=== PATIENT | female | born 1985 | race American Indian/Alaskan Native ===

== ENCOUNTER 2018-05-14 23:06 | Emergency (ER) | payer MEDICARE ==
[2018-05-15 00:31] LABS: Bilirubin,Urine NEG (Negative); Blood,Urine NEG (Negative); Color,Urine Yellow (Yellow); Mucus,Urine FEW /HPF; Protein,Urine <15 mg/dL mg/dL (Negative)
[2018-05-15 00:43] LABS: HCG Qualitative,Urine Negative (Negative)
--- NOTE | 2018-05-15 01:39 | XRay Report ---
FINAL REPORT PROCEDURE: XR SPINE LUMBOSACRAL 2-3V TECHNIQUE: Lumbar spine radiographs, including AP, lateral, and lumbosacral spot views. CPT 11610 HISTORY: lowe back pain COMPARISON: No prior studies are available for comparison. FINDINGS: Alignment: Normal. Vertebral body heights/Disk spaces: Normal. Fracture(s): None. Facets: Normal. Bone mineralization: Normal. IMPRESSION: Normal Examination.
--- NOTE | 2018-05-15 03:44 | Emergency Department Report ---
ED Psych HPI - General Chief Complaint: Back Pain/Injury Stated Complaint: BACK PAIN Time Seen by Provider: 05/15/18 02:17 Source: patient Mode of arrival: Stretcher Limitations: Altered Mental Status - History of Present Illness MD Complaint: altered mental status Associated Psychiatric Symptoms: auditory hallucinations (patient reports voices are speaking to her) Quality: getting worse Associated Symptoms: denies other symptoms Treatments Prior to Arrival: placed on mental he - Related Data Home Medications Medication Instructions Recorded Confirmed Last Taken Benztropine [Cogentin] 2 mg PO BID 12/02/13 12/02/13 12/01/13 21:00 Chlorpromazine HCl [chlorproMAZINE] 100 mg PO 12/02/13 12/02/13 12/01/13 21:00 Docusate Sodium [Colace] 100 mg PO BID PRN 12/02/13 12/02/13 12/01/13 21:00 Risperidone Microspheres 37.5 mg IM 12/02/13 12/02/13 12/01/13 21:00 [Risperdal Consta] diphenhydrAMINE [Benadryl] 50 mg PO QHS PRN 12/02/13 12/02/13 12/01/13 21:00 risperiDONE [Risperidone] 3 mg PO QDAY 12/02/13 12/02/13 12/01/13 21:00 Allergies Allergy/AdvReac Type Severity Reaction Status Date / Time No Known Allergies Allergy Verified 05/15/18 04:57 ED Review of Systems ROS: Stated complaint: BACK PAIN Other details as noted in HPI Other: GENERAL: No weight change, fatigue, weakness, fever, chills, or night sweats SKIN: No changes in skin or hair, no itching, no rashes, no jaundice HEAD: No trauma, headache, or visual changes EYES: No blurriness, tearing, itching, acute visual loss, conjunctival discoloration, or scleral icterus EARS: No hearing loss, tinnitus, vertigo, or earache NOSE: No rhinorrhea, stuffiness, sneezing, itching, or epistaxis MOUTH: No bleeding gums, hoarseness, sore throat, or swelling CARDIAC: No new murmur, chest pain, palpitations, dyspnea on exertion, orthopnea , PND, or edema RESPIRATORY: No shortness of breath, wheeze, cough, sputum production, hemoptysis, pneumonia, asthma, bronchitis, or emphysema GI: No change in appetite, nausea, vomiting, dysphagia, change in bowel frequency, diarrhea, constipation, bleeding, hematemesis, melena, hematochezia, or abdominal pain URINARY: No frequency, urgency, polyuria, dysuria, hematuria, or incontinence MUSCULOSKELETAL: No muscle weakness, joint stiffness, decrease in range of motion, redness, swelling. Patient denies back pain during exam NEUROLOGIC: No loss of sensation, numbness, tingling, tremors, weakness, paralysis, seizures HEMATOLOGIC: No anemia, easy bruising, bleeding, petechiae, or purpura ENDOCRINE: No hot or cold intolerance, sweating, polyuria, polydipsia or, polyphagia no thyroid problems PSYCHIATRIC: Hallucinations ED Past Medical Hx - Past Medical History Hx Psychiatric Treatment: Yes (Schizoaffective, Bipolar,) Additional medical history: Chronic Back Pain - Surgical History Additional Surgical History: pt does not know if she has had surgery or not - Social History Smoking Status: Current Every Day Smoker Substance Use Type: None - Medications Home Medications: Home Medications Medication Instructions Recorded Confirmed Last Taken Type Benztropine [Cogentin] 2 mg PO BID 12/02/13 12/02/13 12/01/13 21:00 History Chlorpromazine HCl [chlorproMAZINE] 100 mg PO 12/02/13 12/02/13 12/01/13 21:00 History Docusate Sodium [Colace] 100 mg PO BID PRN 12/02/13 12/02/13 12/01/13 21:00 History Risperidone Microspheres 37.5 mg IM 12/02/13 12/02/13 12/01/13 21:00 History [Risperdal Consta] diphenhydrAMINE [Benadryl] 50 mg PO QHS PRN 12/02/13 12/02/13 12/01/13 21:00 History risperiDONE [Risperidone] 3 mg PO QDAY 12/02/13 12/02/13 12/01/13 21:00 History ED Physical Exam - General Limitations: No Limitations - Psychiatric Psychiatric exam: Present: flat affect - Other Other exam information: GENERAL: Patient in no acute distress, disheveled HEAD: Normocephalic, atraumatic EYES: PERRLA, EOM intact, no scleral icterus, visual suarez and acuity wnl NOSE: No tenderness, discharge, sinus tenderness MOUTH: No erythema, bleeding, exudate HEART: Regular rate and rhythm, no murmur, S1-S2 are auscultated, pulses are symmetric LUNGS: bilateral breath sounds. No wheezing, rales, rhonchi ABDOMEN: Normal bowel sounds, no tenderness, no rebound, no guarding, no masses , no CVA tenderness MUSCULOSKELETAL: Normal joint range of motion, no redness, no swelling, no tenderness NEUROLOGIC: GCS 15, Alert, Cranial nerves intact, normal sensation, normal strength, normal gait, no cerebellar deficit PSYCHIATRIC: Reports auditory hallucinations, catatonic. No homicidal or suicidal ideation SKIN: Skin is warm and dry, no wounds, generalized areas of erythema nontender without discharge ED Course Vital Signs 05/14/18 05/15/18 23:42 02:15 Temperature 99.3 F 98.3 F Pulse Rate 92 H 86 Respiratory 18 16 Rate Blood Pressure 133/80 Blood Pressure 108/51 [Right] O2 Sat by Pulse 98 100 Oximetry ED Medical Decision Making - Lab Data Result diagrams: 05/15/18 03:51 05/15/18 03:51 Laboratory Results - last 24 hr 05/14/18 05/15/18 05/15/18 Unknown 03:51 03:51 WBC RBC Hgb Hct MCV MCH MCHC RDW Plt Count [place] % (Auto) Sodium 134 L Potassium 4.2 Chloride 96.4 L Carbon Dioxide 29 Anion Gap 13 BUN 5 L Creatinine 0.5 L Estimated GFR > 60 BUN/Creatinine Ratio 10 Glucose 107 H Calcium 9.1 Urine Color Yellow Urine Turbidity Clear Urine pH 5.0 Ur Specific [place] 1.023 Urine Protein <15 mg/dl Urine Glucose (UA) Neg Urine Ketones Tr Urine Blood Neg Urine Nitrite Neg Urine Bilirubin Neg Urine Urobilinogen 2.0 Ur Leukocyte Esterase Tr Urine WBC (Auto) 4.0 Urine RBC (Auto) 4.0 U Epithel Cells (Auto) 4.0 Urine Mucus Few Urine HCG, Qual Negative Salicylates Acetaminophen < 5.0 L Plasma/Serum Alcohol 05/15/18 05/15/18 05/15/18 03:51 03:51 03:51 WBC 6.4 RBC 4.19 Hgb 12.6 Hct 37.0 MCV 88 MCH 30 MCHC 34 RDW 13.2 Plt Count 224 [place] % (Auto) Stripper Machine Operator Sodium Potassium Chloride Carbon Dioxide Anion Gap BUN Creatinine Estimated GFR BUN/Creatinine Ratio Glucose Calcium Urine Color Urine Turbidity Urine pH Ur Specific [place] Urine Protein Urine Glucose (UA) Urine Ketones Urine Blood Urine Nitrite Urine Bilirubin Urine Urobilinogen Ur Leukocyte Esterase Urine WBC (Auto) Urine RBC (Auto) U Epithel Cells (Auto) Urine Mucus Urine HCG, Qual Salicylates < 0.3 L Acetaminophen Plasma/Serum Alcohol < 0.01 - Radiology Data Radiology results: report reviewed - Medical Decision Making Patient medically clear for transfer Critical care attestation.: If time is entered above; I have spent that time in minutes in the direct care of this critically ill patient, excluding procedure time. ED Disposition Clinical Impression: Dermatitis Psychosis Qualifiers: Psychosis type: unspecified psychosis type Qualified Code(s): F29 - Unspecified psychosis not due to a substance or known physiological condition Disposition: DC/TX-70 ANOTHER TYPE HLTHCARE Is pt being admited?: No Condition: Stable Referrals: PRIMARY CARE, [Primary Care Provider] - 3-5 Days Time of Disposition: 04:54
[2018-05-15 04:06] LABS: Hemoglobin 12.6 gm/dl (10.1-14.3); Mean Corpuscular HGB Conc 34 % (30-34); Mean Corpuscular Hemoglobin 30 pg (28-32); Mean Corpuscular Volume 88 fl (79-97); Platelet Count 224 K/mm3 (140-440); Red Blood Count 4.19 M/mm3 (3.65-5.03); Red Cell Distribution Width 13.2 % (13.2-15.2)
[2018-05-15 04:27] LABS: BUN/Creatinine Ratio 10; Blood Urea Nitrogen 5 mg/dL (7-17); Calcium 9.1 mg/dL (8.4-10.2); Hemolysis Index 3
[2018-05-15] MEDS ORDERED: BENADRYL PO ONE ×2 (04:48→04:52)
[2018-05-15 05:46] LABS: Anisocytosis 1+; Band Neutrophils # (Manual) 0.1 K/mm3; Basophils % (Manual) 0 % (0.0-1.8); Hypochromasia 1+; Total Cells Counted 100
[2018-05-15 12:03] LABS: Amphetamine Screen,Urine PRESUMPTIVE NEGATIVE; Benzodiazepines Screen,Urine PRESUMPTIVE NEGATIVE; Cannabinoid Screen,Urine PRESUMPTIVE NEGATIVE; Cocaine Screen,Urine PRESUMPTIVE NEGATIVE; Methadone Screen,Urine PRESUMPTIVE NEGATIVE; Opiate Screen,Urine PRESUMPTIVE NEGATIVE
--- NOTE | 2018-05-15 13:35 | Consultation ---
History of Present Illness - Reason for Consult Consult date: 05/15/18 Reason for consult: Initial Psychiatric Evaluation - Chief Complaint Chief complaint: Patient will only stare at provider. Patient is selectively mute. - History of Present Psychiatric Illness Patient is a 32-year-old -[place] female who presents to the emergency room with psychosis. Currently patient is internally preoccupied. She refuses to speak with the provider after several attempts. She has a blank stare on her face. She presents with impoverished thought content. Later, she states, " Can you'll buy me some cigarettes when I leave because I am poor." When asked, will you talk to me? Patient nods her head no. Medications and Allergies Allergies Allergy/AdvReac Type Severity Reaction Status Date / Time No Known Allergies Allergy Verified 05/15/18 04:57 Home Medications Medication Instructions Recorded Confirmed Last Taken Type Benztropine [Cogentin] 2 mg PO BID 12/02/13 12/02/13 12/01/13 21:00 History Chlorpromazine HCl [chlorproMAZINE] 100 mg PO 12/02/13 12/02/13 12/01/13 21:00 History Docusate Sodium [Colace] 100 mg PO BID PRN 12/02/13 12/02/13 12/01/13 21:00 History Risperidone Microspheres 37.5 mg IM 12/02/13 12/02/13 12/01/13 21:00 History [Risperdal Consta] diphenhydrAMINE [Benadryl] 50 mg PO QHS PRN 12/02/13 12/02/13 12/01/13 21:00 History risperiDONE [Risperidone] 3 mg PO QDAY 12/02/13 12/02/13 12/01/13 21:00 History Mental Status Exam - Vital signs Last Vital Signs Temp 98.3 F 05/15/18 02:15 Pulse 86 05/15/18 02:15 Resp 18 05/15/18 08:47 BP 108/51 05/15/18 02:15 Pulse Ox 100 05/15/18 02:15 - Exam Narrative exam: Provider unable to assess patient's mental status due to her noncompliance. Results Result Diagrams: 05/15/18 03:51 05/15/18 03:51 Abnormal lab results 05/15/18 05/15/18 05/15/18 Range/Units 03:51 03:51 03:51 Monocytes % (Manual) 12.0 H (0.0-7.3) % Lymphocytes # (Manual) 1.0 L (1.2-5.4) K/mm3 Sodium 134 L (137-145) mmol/L Chloride 96.4 L (98-107) mmol/L BUN 5 L (7-17) mg/dL Creatinine 0.5 L (0.7-1.2) mg/dL Glucose 107 H (65-100) mg/dL Salicylates (2.8-20.0) mg/dL Acetaminophen < 5.0 L (10.0-30.0) ug/mL 05/15/18 Range/Units 03:51 Monocytes % (Manual) (0.0-7.3) % Lymphocytes # (Manual) (1.2-5.4) K/mm3 Sodium (137-145) mmol/L Chloride (98-107) mmol/L BUN (7-17) mg/dL Creatinine (0.7-1.2) mg/dL Glucose (65-100) mg/dL Salicylates < 0.3 L (2.8-20.0) mg/dL Acetaminophen (10.0-30.0) ug/mL All other labs normal. Assessment and Plan Assessment and plan: Impression: Psychosis unspecified. Today the patient presents uncooperative and selectively mute during the assessment. Patient appears internally preoccupied with impoverished thought content. Provider unable to fully assess patient. DDx: r/o Schizophrenia r/o Schizoaffective Disorder Recommendation/Plan: 1. Continue 1013 and reassess in 24 hours. 2. Assist with placement to inpatient psychiatric services. 3. Gain collateral to determine proper disposition. 4. Start Zyprexa Zydis 5mg po psychosis/mood. Patient educated on metabolic side effects. Patient verbalizes full understanding. 5. Will monitor mood, psychosis, sleep, appetite, compliance, and side effects.
[2018-05-15 20:07] VITALS: BP 94/52
== END 2018-05-15 20:05 | disposition other institution (70) ==
LOC: ED 23:06
DX: L30.9 Dermatitis, unspecified (principal); F31.9 Bipolar disorder, unspecified; F20.9 Schizophrenia, unspecified; F17.200 Nicotine dependence, unspecified, uncomplicated
CPT/HCPCS: 36415; 72100; 80048; 80307; 81001; 81025; 85007; 85025; 99285; G0480; 80320

== ENCOUNTER 2019-12-27 14:31 | Emergency (ER) | payer MEDICARE ==
--- NOTE | 2019-12-27 15:46 | Emergency Department Report ---
HPI - General Chief Complaint: Psych Time Seen by Provider: 12/27/19 15:00 - HPI HPI: 34-year-old -[place] female presents to the emergency department via EMS from her transition home with complaint of depression and suicidal ideations. The patient says "I am feeling sad because I do not have my own place like I thought I would by now." She denies any particular plan as to how she would harm herself. She says that she has a history of bipolar disorder and schizophrenia. She admits to some nonspecific hallucinations but denies any homicidal ideations. Patient says that she gets a Haldol and Cogentin shot. ED Past Medical Hx - Past Medical History Previous Medical History?: Yes Hx Psychiatric Treatment: Yes (Schizoaffective, Bipolar,) Additional medical history: Chronic Back Pain - Surgical History Past Surgical History?: Yes Additional Surgical History: pt does not know if she has had surgery or not - Social History Smoking Status: Current Every Day Smoker Substance Use Type: None, Marijuana - Medications Home Medications: Home Medications Medication Instructions Recorded Confirmed Last Taken Type Benztropine [Cogentin] 2 mg PO BID 12/02/13 12/02/13 12/01/13 21:00 History Chlorpromazine HCl [chlorproMAZINE] 100 mg PO 12/02/13 12/02/13 12/01/13 21:00 History Docusate Sodium [Colace] 100 mg PO BID PRN 12/02/13 12/02/13 12/01/13 21:00 History Risperidone Microspheres 37.5 mg IM 12/02/13 12/02/13 12/01/13 21:00 History [Risperdal Consta] diphenhydrAMINE [Benadryl] 50 mg PO QHS PRN 12/02/13 12/02/13 12/01/13 21:00 History risperiDONE [Risperidone] 3 mg PO QDAY 12/02/13 12/02/13 12/01/13 21:00 History ED Review of Systems ROS: Stated complaint: MH Other details as noted in HPI Comment: All other systems reviewed and negative Constitutional: denies: chills, fever Respiratory: denies: cough, shortness of breath Cardiovascular: denies: chest pain, palpitations Gastrointestinal: denies: abdominal pain, vomiting Musculoskeletal: denies: back pain, arthralgia Neurological: denies: headache, weakness Physical Exam - Physical Exam Physical Exam: GENERAL: The patient is well-developed well-nourished. HENT: Normocephalic. Atraumatic. Patient has moist mucous membranes. EYES: Extraocular motions are intact. NECK: Supple. Trachea is midline. CHEST/LUNGS: Clear to auscultation. There is no respiratory distress noted. HEART/CARDIOVASCULAR: Regular. There is no tachycardia. ABDOMEN: Abdomen is soft, nontender. Patient has normal bowel sounds. SKIN: Skin is warm and dry. NEURO: The patient is awake, alert, and cooperative. The patient has no focal neurologic deficits. Normal speech. MUSCULOSKELETAL: There is no tenderness or deformity. There is no evidence of acute injury. ED Medical Decision Making - Lab Data Result diagrams: 12/27/19 16:18 12/27/19 16:18 - Medical Decision Making This patient presents to the emergency department with suicidal ideations without a plan. She does admit to some hallucinations that are nonspecific. However she expresses command hallucinations when she was seen by the mental health compotype operator. The patient was made a 1013 secondary to her suicidal ideations. Her labs thus far have been unremarkable including CBC, metabolic panel and blood alcohol level. The patient has been tentatively accepted to [facility] pending a urinalysis. However at this time I consider this patient to be medically cleared for psychiatric placement. - Differential Diagnosis Bipolar disorder, schizophrenia, schizoaffective, substance abuse Critical Care Time: No Critical care attestation.: If time is entered above; I have spent that time in minutes in the direct care of this critically ill patient, excluding procedure time. ED Disposition Clinical Impression: Suicidal ideations Depression Qualifiers: Depression Type: unspecified Qualified Code(s): F32.9 - Major depressive disorder, single episode, unspecified Disposition: DC/TX-65 PSY HOSP/PSY UNIT Is pt being admited?: No Condition: Stable Time of Disposition: 21:57
[2019-12-27 16:47] LABS: Basophils % (Auto) 0.2 % (0.0-1.8); Hematocrit 39.3 % (30.3-42.9); Hemoglobin 13.4 gm/dl (10.1-14.3); Lymphocytes # (Auto) 1.4 K/mm3 (1.2-5.4); Mean Corpuscular HGB Conc 34 % (30-34); Mean Corpuscular Volume 88 fl (79-97); Monocytes # (Auto) 0.6 K/mm3 (0.0-0.8); Monocytes % (Auto) 12.6 % (0.0-7.3); Platelet Count 244 K/mm3 (140-440); Red Cell Distribution Width 12.9 % (13.2-15.2)
[2019-12-27 16:50] LABS: BUN/Creatinine Ratio 14; Blood Urea Nitrogen 10 mg/dL (7-17); Hemolysis Index 6
[2019-12-28 01:30] LABS: Bilirubin,Urine NEG (Negative); Blood,Urine SM (Negative); Color,Urine Yellow (Yellow); Protein,Urine <15 mg/dL mg/dL (Negative); Urobilinogen,Urine < 2.0 mg/dL (<2.0)
[2019-12-28 01:34] LABS: Amphetamine Screen,Urine PRESUMPTIVE NEGATIVE; Benzodiazepines Screen,Urine PRESUMPTIVE NEGATIVE; Cannabinoid Screen,Urine PRESUMPTIVE NEGATIVE; Cocaine Screen,Urine PRESUMPTIVE NEGATIVE; Methadone Screen,Urine PRESUMPTIVE NEGATIVE; Opiate Screen,Urine PRESUMPTIVE NEGATIVE
--- NOTE | 2019-12-28 14:41 | Consultation ---
History of Present Illness - Reason for Consult Consult date: 12/28/19 Reason for consult: suicidal ideation - Chief Complaint Chief complaint: suicidal ideation, hallucinations - History of Present Psychiatric Illness Christina Solomon is a 34 year old female patient who came to the ER after "calling 911 for being suicidal." The patient is a/o x 2. She references "Mr. Mcgregor" as the President of the [employer]. She makes fair eye contact. She appears to be mentally delayed. She takes long pauses between her responses as if losing her thought. At times she had to be prompted to give a response. She is a poor historian. The patient says she is "depressed and suicidal." She says she's been suicidal "for a minute." She also complains of "hearing voices for a minute." The patient was unable to tell me what the voices where saying. She also says she sees " people." The patient says she's had one suicide attempt when she was "[age]." But she denies any psychiatric hospital admits. She denies any illicit drug use or alcohol use. The patient says she smokes cigarets "daily" but was unable to tell me how many. Ms. Solomon says she has a history of "schizophrenia and Bipolar." PAST PSYCHIATRIC HISTORY: Diagnoses: Schizophrenia, Bipolar Suicide attempts or Self-harm behavior: "when I was 20" Prior psychiatric hospitalizations: Denies Substance Abuse history: Nicotine Previous psychiatric medications tried: Haldol, Cogentin Outpatient treatment: Yes PAST MEDICAL HISTORY: None reported FAMILY PSYCHIATRIC HISTORY: None reported SOCIAL HISTORY Marital Status: Single Living Arrangements: Transitional housing Employment Status: Disabled Access to guns/weapons: Denies Education: 12th grade History of Abuse: nicotine Legal History: Yes ROS Constitutional: Negative for weight loss ENT: Negative for stridor Respiratory: Positive for cough All other systems reviewed and are negative MENTAL STATUS General Appearance: Dressed appropriately Behavior: Calm and cooperative Mood: "Depressed" Affect: Congruent with stated mood Thought Process: Logical and Goal-directed Speech: Normal tone and pace Thought Content Suicidal Ideation: Yes Homicidal Ideation: Denies Hallucinations: A/V Delusions: None elicited Insight/Judgment: Limited Memory/Cognition: Impaired ASSESSMENT: Schizoaffective Disorder RECOMMENDATIONS MEDICATIONS: Restarted home medications Risperidone 3mg po BID Cogentin 2mg po BID Benadryl 50mg po qhs prn Trazodone 50mg po qhs Nicotine patch 21mg daily Risks, benefits and alternatives of medications discussed with the patient, questions answered and consent obtained from patient. PSYCHOTHERAPY: Supportive psychotherapy provided MEDICAL: Per primary team DELIRIUM PRECAUTIONS: Please re-orient patient frequently, keep lights on during the day, and minimize benzodiazepines and opiates as these medications could worsen patient's confusion. STRA[employer]S: Defer to primary DISPOSITION: The patient meets the criteria for acute inpatient psychiatric treatment. She transfer to an acute psychiatric facility once medically cleared. Will continue to follow the patient until transferred or stabilized enough to discharge. Please call with any questions or concerns. Thank you for this consult. Medications and Allergies Allergies Allergy/AdvReac Type Severity Reaction Status Date / Time No Known Allergies Allergy Verified 05/15/18 04:57 Home Medications Medication Instructions Recorded Confirmed Last Taken Type Benztropine [Cogentin] 2 mg PO BID 12/02/13 12/02/13 12/01/13 21:00 History Chlorpromazine HCl [chlorproMAZINE] 100 mg PO 12/02/13 12/02/13 12/01/13 21:00 History Docusate Sodium [Colace] 100 mg PO BID PRN 12/02/13 12/02/13 12/01/13 21:00 History Risperidone Microspheres 37.5 mg IM 12/02/13 12/02/13 12/01/13 21:00 History [Risperdal Consta] diphenhydrAMINE [Benadryl] 50 mg PO QHS PRN 12/02/13 12/02/13 12/01/13 21:00 History risperiDONE [Risperidone] 3 mg PO QDAY 12/02/13 12/02/13 12/01/13 21:00 History Mental Status Exam - Vital signs Last Vital Signs Temp 98.9 F 12/28/19 07:53 Pulse 90 12/28/19 07:53 Resp 16 12/28/19 07:53 BP 139/83 12/28/19 07:53 Pulse Ox 100 12/28/19 07:53 Results Result Diagrams: 12/27/19 16:18 12/27/19 16:18 Abnormal lab results 12/27/19 12/27/19 Range/Units 16:18 23:46 RDW 12.9 L (13.2-15.2) % [place] % (Auto) 12.6 H (0.0-7.3) % Urine WBC (Auto) 14.0 H (0.0-6.0) /HPF All other labs normal.
[2019-12-28] MEDS ORDERED: BENZTROPINE 2 MG TAB PO SCH (15:00)
[2019-12-28] MEDS ORDERED: traZODone 50 MG TAB PO ONE (15:00)
[2019-12-28] MEDS ORDERED: diphenhydrAMINE 50 MG CAP PO PRN (15:00)
[2019-12-28] MEDS ORDERED: risperiDONE 3 MG TAB PO SCH (15:00)
[2019-12-28] MEDS ORDERED: ZIPRASIDONE MESYLATE 20 MG VIAL IM PRN (15:01)
[2019-12-28] MEDS ORDERED: NICOTINE 21 MG/24 HR PATCH TD ONE (15:05)
[2019-12-28] MEDS ORDERED: NITROFURANTOIN MONOHYD/M-CRYST 100 MG CAP PO ONE (18:09)
[2019-12-28 19:39] VITALS: BP 121/85
== END 2019-12-28 20:05 ==
LOC: ED 14:31
DX: F32.9 Major depressive disorder, single episode, unspecified (principal); R45.851 Suicidal ideations; F32.0 Major depressive disorder, single episode, mild; F12.90 Cannabis use, unspecified, uncomplicated; F17.200 Nicotine dependence, unspecified, uncomplicated; Z79.899 Other long term (current) drug therapy
CPT/HCPCS: 36415; 80048; 80307; 81001; 84703; 85025; 87086

== ENCOUNTER 2020-04-28 17:17 | Emergency (ER) | payer MEDICARE ==
[2020-04-28 17:42] VITALS: BP 135/75
--- NOTE | 2020-04-28 18:39 | Event Note ---
ED Screening Note Date of service: 04/28/20 Time: 18:38 ED Screening Note: Patient complains of left facial swelling x1 week Denies dental pain Moderate swelling of the left face with tenderness noted on exam This initial assessment/diagnostic orders/clinical plan/treatment(s) is/are subject to change based on patients health status, clinical progression and re- assessment by fellow clinical providers in the ED. Further treatment and workup at subsequent clinical providers discretion. Patient/guardian urged not to elope from the ED as their condition may be serious if not clinically assessed and managed. Initial orders include: CT Lab
[2020-04-28 19:07] LABS: Eosinophils # (Auto) 0.1 K/mm3 (0.0-0.4); Eosinophils % (Auto) 0.9 % (0.0-4.3); Hematocrit 37.4 % (30.3-42.9); Hemoglobin 13.1 gm/dl (10.1-14.3); Lymphocytes # (Auto) 1.5 K/mm3 (1.2-5.4); Lymphocytes % (Auto) 23.8 % (13.4-35.0); Mean Corpuscular HGB Conc 35 % (30-34); Mean Corpuscular Volume 87 fl (79-97); Monocytes # (Auto) 0.9 K/mm3 (0.0-0.8); Monocytes % (Auto) 13.7 % (0.0-7.3); Platelet Count 247 K/mm3 (140-440); Red Blood Count 4.32 M/mm3 (3.65-5.03); Red Cell Distribution Width 12.7 % (13.2-15.2)
[2020-04-28 19:24] LABS: Alanine Aminotransferase 14 units/L (7-56); BUN/Creatinine Ratio 10; Blood Urea Nitrogen 7 mg/dL (7-17); Calcium 9.3 mg/dL (8.4-10.2); Hemolysis Index 7
--- NOTE | 2020-04-28 21:17 | Cat Scan Report ---
CT MAXILLOFACIAL WITHOUT CONTRAST INDICATION: Facial pain/injury. TECHNIQUE: Axial, coronal and sagittal noncontrast CT imaging was performed through the face. All CT scans at [facility] location are performed using CT dose reduction for ALARA by means of automated exposure control. COMPARISON: None available. FINDINGS: FACIAL BONES: No fracture or other significant abnormality. PARANASAL SINUSES: A retention cyst/polyp is seen anteriorly and laterally along the right maxillary sinus measuring 1.7 cm. No other significant abnormality. ORBITS: No significant abnormality. VISUALIZED INTRACRANIAL STRUCTURES: No significant abnormality. ADDITIONAL FINDINGS: Mild edema is noted along the maxillary soft tissues bilaterally. IMPRESSION: Mild bilateral maxillary soft tissue edema. No acute osseous abnormality. Signer Name: Savage Lambert MD Signed: 04/28/2020 9:13 PM Workstation Name: [id number]
--- NOTE | 2020-04-28 21:45 | Emergency Department Report ---
ED General Adult HPI - General Chief complaint: Pain General Stated complaint: FACE SWELLING PUI?: No Time Seen by Provider: 04/28/20 18:35 Source: patient Mode of arrival: Ambulatory Limitations: No Limitations - History of Present Illness Initial comments: Mrs. Solomon is a 34-year-old female with history of schizoaffective disorder who presents with facial swelling. Facial swelling has been present for several days. Mostly involving the left maxillary region. She has diffuse tooth decay. She denies pain or trauma. -: Gradual, week(s) (1) Location: face (left cheek) Consistency: intermittent Improves with: none Worsens with: none - Related Data Home Medications Medication Instructions Recorded Confirmed Last Taken Benztropine [Cogentin] 2 mg PO BID 12/02/13 12/02/13 12/01/13 21:00 Chlorpromazine HCl [chlorproMAZINE] 100 mg PO 12/02/13 12/02/13 12/01/13 21:00 Docusate Sodium [Colace] 100 mg PO BID PRN 12/02/13 12/02/13 12/01/13 21:00 Risperidone Microspheres 37.5 mg IM 12/02/13 12/02/13 12/01/13 21:00 [Risperdal Consta] diphenhydrAMINE [Benadryl] 50 mg PO QHS PRN 12/02/13 12/02/13 12/01/13 21:00 risperiDONE [Risperidone] 3 mg PO QDAY 12/02/13 12/02/13 12/01/13 21:00 Previous Rx's Medication Instructions Recorded Last Taken Type Nitrofurantoin [place]/M-Cryst 100 mg PO Q12HR #10 capsule 12/28/19 Unknown Rx [Macrobid CAP] Penicillin V Potassium 500 mg PO QID 10 Days #40 tablet 04/28/20 Unknown Rx Allergies Allergy/AdvReac Type Severity Reaction Status Date / Time No Known Allergies Allergy Verified 05/15/18 04:57 ED Review of Systems ROS: Stated complaint: FACE SWELLING Other details as noted in HPI Constitutional: denies: fever, malaise Respiratory: denies: shortness of breath Gastrointestinal: denies: abdominal pain, nausea, vomiting ED Past Medical Hx - Past Medical History Previous Medical History?: Yes Hx Psychiatric Treatment: Yes (Schizoaffective, Bipolar,) Additional medical history: Chronic Back Pain - Surgical History Additional Surgical History: pt does not know if she has had surgery or not - Social History Smoking Status: Current Every Day Smoker - Medications Home Medications: Home Medications Medication Instructions Recorded Confirmed Last Taken Type Benztropine [Cogentin] 2 mg PO BID 12/02/13 12/02/13 12/01/13 21:00 History Chlorpromazine HCl [chlorproMAZINE] 100 mg PO 12/02/13 12/02/13 12/01/13 21:00 History Docusate Sodium [Colace] 100 mg PO BID PRN 12/02/13 12/02/13 12/01/13 21:00 History Risperidone Microspheres 37.5 mg IM 12/02/13 12/02/13 12/01/13 21:00 History [Risperdal Consta] diphenhydrAMINE [Benadryl] 50 mg PO QHS PRN 12/02/13 12/02/13 12/01/13 21:00 History risperiDONE [Risperidone] 3 mg PO QDAY 12/02/13 12/02/13 12/01/13 21:00 History Nitrofurantoin [place]/M-Cryst 100 mg PO Q12HR #10 capsule 12/28/19 Unknown Rx [Macrobid CAP] Penicillin V Potassium 500 mg PO QID 10 Days #40 tablet 04/28/20 Unknown Rx ED Physical Exam - General Limitations: No Limitations General appearance: alert, in no apparent distress, other (Mild left facial swelling) - Head Head exam: Present: atraumatic, normocephalic - Eye Eye exam: Present: normal appearance - ENT ENT exam: Present: other (Diffuse teeth decay, numerous decaying teeth most teeth are decayed to the pulp, mild diffuse gum swelling) - Neck Neck exam: Present: normal inspection. Absent: tenderness, meningismus, full ROM - Respiratory Respiratory exam: Present: normal lung sounds bilaterally. Absent: respiratory distress - Cardiovascular Cardiovascular Exam: Present: regular rate, normal rhythm. Absent: systolic murmur, diastolic murmur, rubs, gallop - GI/Abdominal GI/Abdominal exam: Present: soft, normal bowel sounds - Extremities Exam Extremities exam: Present: normal inspection - Back Exam Back exam: Present: normal inspection - Neurological Exam Neurological exam: Present: alert, oriented X3 - Psychiatric Psychiatric exam: Present: normal affect, normal mood - Skin Skin exam: Present: warm, dry, intact, normal color. Absent: rash ED Course Vital Signs 04/28/20 17:39 Temperature 99.1 F Pulse Rate 88 Respiratory 15 Rate Blood Pressure 135/75 O2 Sat by Pulse 100 Oximetry ED Medical Decision Making - Lab Data Result diagrams: 04/28/20 18:51 04/28/20 18:51 Laboratory Results - last 24 hr 04/28/20 04/28/20 04/28/20 18:51 18:51 18:51 WBC 6.4 RBC 4.32 Hgb 13.1 Hct 37.4 MCV 87 MCH 30 MCHC 35 H RDW 12.7 L Plt Count 247 Lymph % (Auto) 23.8 [place] % (Auto) 13.7 H Eos % (Auto) 0.9 Baso % (Auto) Wafer Fabricator Lymph # 1.5 [place] # 0.9 H Eos # 0.1 Baso # 0.0 Seg Neutrophils % 61.3 Seg Neutrophils # 3.9 Sodium 132 L Potassium 4.2 Chloride 94.4 L Carbon Dioxide 26 Anion Gap 16 BUN 7 Creatinine 0.7 Estimated GFR > 60 BUN/Creatinine Ratio 10 Glucose 91 Calcium 9.3 Total Bilirubin 0.30 AST 24 ALT 14 Alkaline Phosphatase 59 Total Protein 8.5 H Albumin 4.0 Albumin/Globulin Ratio 0.9 HCG, Qual Negative - Radiology Data Radiology results: report reviewed CT face with contrast: Mild maxillary edema according to radiology impression - Medical Decision Making Facial cellulitis due to odontogenic infection. Prescribed penicillin referred to dentist Critical care attestation.: If time is entered above; I have spent that time in minutes in the direct care of this critically ill patient, excluding procedure time. ED Disposition Clinical Impression: Facial cellulitis, Infected dental caries Disposition: DC- TO HOME OR SELFCARE Is pt being admited?: No Does the pt Need Aspirin: No Condition: Stable Additional Instructions: Please see your dentist as soon as possible. Prescriptions: Penicillin V Potassium 500 mg PO QID 10 Days #40 tablet Referrals: [facility] [Outside] - 3-5 Days [facility] [Outside] - 3-5 Days
== END 2020-04-28 21:55 | disposition home or self-care (01) ==
LOC: ED 17:17
DX: L03.211 Cellulitis of face (principal); K02.9 Dental caries, unspecified; F31.9 Bipolar disorder, unspecified; F25.8 Other schizoaffective disorders; G89.29 Other chronic pain; F17.200 Nicotine dependence, unspecified, uncomplicated; Z79.899 Other long term (current) drug therapy
CPT/HCPCS: 36415; 70487; 80053; 84703; 85025; 99284; Q9967

== ENCOUNTER 2020-06-15 20:54 | Emergency (ER) | payer MEDICARE ==
[2020-06-15] MEDS ORDERED: LORazepam 1 MG TAB PO ONE (22:05)
[2020-06-15] MEDS ORDERED: LORazepam 1 MG TAB ONE (22:06)
[2020-06-15 23:28] LABS: Bilirubin,Urine SM (Negative); Blood,Urine LG (Negative); Color,Urine Amber (Yellow); Mucus,Urine FEW /HPF
[2020-06-15 23:29] LABS: Amphetamine Screen,Urine PRESUMPTIVE NEGATIVE; Benzodiazepines Screen,Urine PRESUMPTIVE NEGATIVE; Cannabinoid Screen,Urine PRESUMPTIVE NEGATIVE; Cocaine Screen,Urine PRESUMPTIVE NEGATIVE; Methadone Screen,Urine PRESUMPTIVE NEGATIVE; Opiate Screen,Urine PRESUMPTIVE NEGATIVE
[2020-06-15 23:37] LABS: Ictotest,Urine Negative (Negative)
[2020-06-16 00:54] LABS: Basophils % (Auto) 0.5 % (0.0-1.8); Eosinophils # (Auto) 0.1 K/mm3 (0.0-0.4); Hematocrit 36.8 % (30.3-42.9); Hemoglobin 13.2 gm/dl (10.1-14.3); Lymphocytes # (Auto) 1.7 K/mm3 (1.2-5.4); Lymphocytes % (Auto) 24.6 % (13.4-35.0); Mean Corpuscular HGB Conc 36 % (30-34); Mean Corpuscular Volume 85 fl (79-97); Monocytes # (Auto) 0.9 K/mm3 (0.0-0.8); Monocytes % (Auto) 12.4 % (0.0-7.3); Platelet Count 265 K/mm3 (140-440); Red Blood Count 4.33 M/mm3 (3.65-5.03); Red Cell Distribution Width 13.2 % (13.2-15.2)
--- NOTE | 2020-06-16 00:57 | Emergency Department Report ---
<ADÁN STRATTON - Last Filed: 06/16/20 00:55> ED Psych HPI - General Chief Complaint: Psych Stated Complaint: SUICIDAL IDEATIONS Time Seen by Provider: 06/15/20 21:03 Source: patient, EMS Mode of arrival: Ambulatory - History of Present Illness Initial Comments: Patient is a 34-year-old F Burkinan female with bipolar disorder and schizoaffective disorder as well who is presenting with suicidal ideations. Patient states she is having clinic command auditory hallucinations telling her to kill herself. Patient states she has thoughts of shooting herself in the head. She has no gun but she states she has a friend that has when she has been thinking about getting the gun to kill herself. Patient also was noted to be banging her head against the wall at her residential. Patient has no homicidal ideations at this time. She denies any drug use. - Related Data Home Medications Medication Instructions Recorded Confirmed Last Taken Benztropine [Cogentin] 2 mg PO BID 12/02/13 12/02/13 12/01/13 21:00 Chlorpromazine HCl [chlorproMAZINE] 100 mg PO 12/02/13 12/02/13 12/01/13 21:00 Docusate Sodium [Colace] 100 mg PO BID PRN 12/02/13 12/02/13 12/01/13 21:00 Risperidone Microspheres 37.5 mg IM 12/02/13 12/02/13 12/01/13 21:00 [Risperdal Consta] diphenhydrAMINE [Benadryl] 50 mg PO QHS PRN 12/02/13 12/02/13 12/01/13 21:00 risperiDONE [Risperidone] 3 mg PO QDAY 12/02/13 12/02/13 12/01/13 21:00 Previous Rx's Medication Instructions Recorded Last Taken Type Nitrofurantoin [place]/M-Cryst 100 mg PO Q12HR #10 capsule 12/28/19 Unknown Rx [Macrobid CAP] Penicillin V Potassium 500 mg PO QID 10 Days #40 tablet 04/28/20 Unknown Rx Allergies Allergy/AdvReac Type Severity Reaction Status Date / Time No Known Allergies Allergy Verified 05/15/18 04:57 ED Review of Systems Comment: All other systems reviewed and negative ED Past Medical Hx - Past Medical History Previous Medical History?: Yes Hx Psychiatric Treatment: Yes (Schizoaffective, Bipolar,) Additional medical history: Chronic Back Pain - Surgical History Past Surgical History?: Yes Additional Surgical History: abdominal sc - Social History Smoking Status: Current Every Day Smoker Substance Use Type: None - Medications Home Medications: Home Medications Medication Instructions Recorded Confirmed Last Taken Type Benztropine [Cogentin] 2 mg PO BID 12/02/13 12/02/13 12/01/13 21:00 History Chlorpromazine HCl [chlorproMAZINE] 100 mg PO 12/02/13 12/02/13 12/01/13 21:00 History Docusate Sodium [Colace] 100 mg PO BID PRN 12/02/13 12/02/13 12/01/13 21:00 History Risperidone Microspheres 37.5 mg IM 12/02/13 12/02/13 12/01/13 21:00 History [Risperdal Consta] diphenhydrAMINE [Benadryl] 50 mg PO QHS PRN 12/02/13 12/02/13 12/01/13 21:00 History risperiDONE [Risperidone] 3 mg PO QDAY 12/02/13 12/02/13 12/01/13 21:00 History Nitrofurantoin [place]/M-Cryst 100 mg PO Q12HR #10 capsule 12/28/19 Unknown Rx [Macrobid CAP] Penicillin V Potassium 500 mg PO QID 10 Days #40 tablet 04/28/20 Unknown Rx ED Physical Exam - General Limitations: No Limitations General appearance: alert, in no apparent distress - Head Head exam: Present: atraumatic, normocephalic - Eye Eye exam: Present: normal appearance - ENT ENT exam: Present: mucous membranes moist - Neck Neck exam: Present: normal inspection - Respiratory Respiratory exam: Present: normal lung sounds bilaterally. Absent: respiratory distress, wheezes, rales, rhonchi - Cardiovascular Cardiovascular Exam: Present: regular rate, normal rhythm. Absent: systolic murmur, diastolic murmur, rubs, gallop - GI/Abdominal GI/Abdominal exam: Present: soft, normal bowel sounds. Absent: distended, guarding, rebound - Extremities Exam Extremities exam: Present: normal inspection - Back Exam Back exam: Present: normal inspection - Neurological Exam Neurological exam: Present: alert, oriented X3 - Psychiatric Psychiatric exam: Present: normal mood, flat affect - Skin Skin exam: Present: warm, dry, intact, normal color. Absent: rash ED Medical Decision Making - Lab Data Result diagrams: 06/16/20 00:39 ED Disposition Clinical Impression: Schizoaffective disorder, bipolar type Disposition: DC-01 TO HOME OR SELFCARE Condition: Stable Instructions: Suicide Prevention for Adults (ED) Referrals: PRIMARY CARE, [Primary Care Provider] - 3-5 Days <NELLIE PEREZ - Last Filed: 06/17/20 13:00> ED Review of Systems ROS: Stated complaint: SUICIDAL IDEATIONS Other details as noted in HPI ED Course Vital Signs 06/15/20 06/16/20 06/16/20 22:10 01:00 08:10 Temperature 98.2 F 98 F 98.0 F Pulse Rate 101 H 90 70 Respiratory 18 18 20 Rate Blood Pressure Blood Pressure 101/77 106/70 110/57 [Left] O2 Sat by Pulse 98 96 100 Oximetry 06/16/20 06/16/20 06/16/20 19:14 19:40 19:42 Temperature 98.2 F Pulse Rate 88 Respiratory 20 18 18 Rate Blood Pressure 114/81 Blood Pressure [Left] O2 Sat by Pulse 98 Oximetry 06/17/20 09:17 Temperature 98.0 F Pulse Rate 77 Respiratory 18 Rate Blood Pressure Blood Pressure 129/84 [Left] O2 Sat by Pulse 99 Oximetry ED Medical Decision Making - Lab Data Result diagrams: 06/16/20 00:39 06/16/20 00:39 - Medical Decision Making Patient has been evaluated by our psychiatric team and advised patient to be discharged home and to follow-up as an outpatient. Patient is currently denying any suicidal or homicidal ideation. No visual or auditory hallucination. Patient is medically and psychiatrically stable for discharge. Please see copy note from psychiatric team below. Assessment and Plan - Psychiatric problem (1) Schizoaffective disorder, bipolar type Current Visit: Yes Status: Acute Treatment Plan MEDICATIONS: no adjustment. F/U with outpt psych Risks, benefits and alternatives of medications discussed with the patient, questions answered and consent obtained from patient. PSYCHOTHERAPY: Supportive psychotherapy provided MEDICAL: Per primary team DELIRIUM PRECAUTIONS: Please re-orient patient frequently, keep lights on during the day, and minimize benzodiazepines and opiates as these medications could worsen patient's confusion. 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 Safety discharge LEGAL STATUS: 1013 rescinded FOLLOW-UP: Will sign off Thank you for the consult. Please contact with any questions and/or concerns. Critical care attestation.: If time is entered above; I have spent that time in minutes in the direct care of this critically ill patient, excluding procedure time. ED Disposition Is pt being admited?: No
[2020-06-16 01:15] LABS: BUN/Creatinine Ratio 7; Blood Urea Nitrogen 6 mg/dL (7-17); Calcium 9.2 mg/dL (8.4-10.2); Hemolysis Index 22
[2020-06-17 09:20] VITALS: BP 129/84
--- NOTE | 2020-06-17 10:41 | Consultation ---
History of Present Illness - Reason for Consult Consult date: 06/17/20 Reason for consult: MHE Requesting physician: NELLIE PEREZ - History of Present Psychiatric Illness Per ED Provider: Patient is a 34-year-old F Tongan female with bipolar disorder and schizoaffective disorder as well who is presenting with suicidal ideations. Patient states she is having clinic command auditory hallucinations telling her to kill herself. Patient states she has thoughts of shooting herself in the head. She has no gun but she states she has a friend that has when she has been thinking about getting the gun to kill herself. Patient also was noted to be banging her head against the wall at her half-way. Patient h as no homicidal ideations at this time. She denies any drug use. Per [facility]: Pt is a 34 year old AA female; Per triage note, "came from a half-way, per EMS patient had SI without plan for a couple of days. Patient denies SI/HI/hearing voices, confused, unable to identify date,place and time." Pt was guarded and anxious during the assessment and provided minimal information; pt provided Mr. Santos (therapist) info to [facility]. Pt reports that she resides at a half-way through [facility] managed by Ms. Copeland [phone] . Mr. Santos [phone] follows the pt with [facility]. Pt reports that she carries a diagnosis of, "Bipolar Disorder and Schizophrenia." "I got a psych doctor I see." Pt reports that she is unable to remember the name of her psychiatrist; "they prescribed me Seroquel and Cogentin." Pt is followed by [facility].Pt reports that she resides at a half-way through [facility] managed by Ms. Copeland [phone] . Mr. Santos [phone] follows the pt with [facility].Pt is guarded and minimally responding. Pt denies AH or VH. Therapist reports that the pt has not endorsed any AH or VH recently. Pt has poor eye contact, poor insight and poor judgment.Pt reports thoughts of harming self for a few days because of conflict at the half-way; pt was vague with this manager telecom about specific plans. Spoke to Mu Tom (therapist) who states the pt stated she is going to slit her throat using a knife or hang herself. "She has been unstable the past few days, and we wanted to get her seen." Pt denies any thought or plans to harm others; however, therapist reports that the pt was agitated and very aggressive towards peers in the home. "This was out of her character." PSYCH HPI Patient is a single, disabled Female who currently resides in a half-way with past medical history of bipolar and schizoaffective disorder who presents yesterday to the ED with complaints of SI and wanting to kill self. Patient reports she knows she is currently in the hospital and because she had saif things she didnt mean to. She reports not feeling the way she was before, and would like to be taken back to her transitional home in which patient pr ovided the full address. Patient denies acute AVH,, says nothing is going through her mind right now besides going back home and sleep. Patient states she has sibling in [place] whom they al that really communicate because they have all been in out of foster homes so much. PAST PSYCHIATRIC HISTORY: Diagnoses: Schizophrenia, Bipolar Suicide attempts or Self-harm behavior: "when I was 20" Prior psychiatric hospitalizations: Denies Substance Abuse history: Nicotine Previous psychiatric medications tried: Haldol, Cogentin Outpatient treatment: Yes PAST MEDICAL HISTORY: None reported FAMILY PSYCHIATRIC HISTORY: None reported SOCIAL HISTORY Marital Status: Single Living Arrangements: Transitional housing Employment Status: Disabled Access to guns/weapons: Denies Education: 12th grade History of Abuse: nicotine Legal History: Yes ROS Constitutional: Negative for weight loss ENT: Negative for stridor Respiratory: Positive for cough All other systems reviewed and are negative MENTAL STATUS EXAMINATION General Appearance and Behavior: Age appropriate, fair hygiene, wearing appropriate clothes, lying in bed, good eye contact, cooperative polite with questioning. Cooperation: Participating/engaged Psychomotor Behavior: unremarkable and within normal limits Mood: Good Affect and affective range: congruent with mood Thought Process: Fluent/Logical Thought Content: Within reality Speech: Normal volume, Regular rate and rhythm Intellectual Functioning: Average Suicidal Ideation: Denies SI Homicidal Ideation: Denies HI Impulse Control: Impaired Insight and Judgment: Limited insight and judgment Memory: Mildly impaired Attention: Divided attention impaired Orientation: Alert, oriented, anxious Diagnoses: Assessment and Plan - Psychiatric problem (1) Schizoaffective disorder, bipolar type Current Visit: Yes Status: Acute Treatment Plan MEDICATIONS: no adjustment. F/U with outpt psych Risks, benefits and alternatives of medications discussed with the patient, questions answered and consent obtained from patient. PSYCHOTHERAPY: Supportive psychotherapy provided MEDICAL: Per primary team DELIRIUM PRECAUTIONS: Please re-orient patient frequently, keep lights on during the day, and minimize benzodiazepines and opiates as these medications could worsen patient's confusion. 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 Safety discharge LEGAL STATUS: 1013 rescinded FOLLOW-UP: Will sign off Thank you for the consult. Please contact with any questions and/or concerns. Medications and Allergies Allergies Allergy/AdvReac Type Severity Reaction Status Date / Time No Known Allergies Allergy Verified 05/15/18 04:57 Home Medications Medication Instructions Recorded Confirmed Last Taken Type Benztropine [Cogentin] 2 mg PO BID 12/02/13 12/02/13 12/01/13 21:00 History Chlorpromazine HCl [chlorproMAZINE] 100 mg PO 12/02/13 12/02/13 12/01/13 21:00 History Docusate Sodium [Colace] 100 mg PO BID PRN 12/02/13 12/02/13 12/01/13 21:00 History Risperidone Microspheres 37.5 mg IM 12/02/13 12/02/13 12/01/13 21:00 History [Risperdal Consta] diphenhydrAMINE [Benadryl] 50 mg PO QHS PRN 12/02/13 12/02/13 12/01/13 21:00 History risperiDONE [Risperidone] 3 mg PO QDAY 12/02/13 12/02/13 12/01/13 21:00 History Nitrofurantoin [place]/M-Cryst 100 mg PO Q12HR #10 capsule 12/28/19 Unknown Rx [Macrobid CAP] Penicillin V Potassium 500 mg PO QID 10 Days #40 tablet 04/28/20 Unknown Rx Mental Status Exam - Vital signs Last Vital Signs Temp 98.0 F 06/17/20 09:17 Pulse 77 06/17/20 09:17 Resp 18 06/17/20 09:17 BP 129/84 06/17/20 09:17 Pulse Ox 99 06/17/20 09:17 Results Result Diagrams: 06/16/20 00:39 06/16/20 00:39 All other labs normal. Assessment and Plan - Psychiatric problem (1) Schizoaffective disorder, bipolar type Current Visit: Yes Status: Acute
== END 2020-06-17 14:30 | disposition home or self-care (01) ==
LOC: EEVIPCON 20:54 → ED 20:54
DX: F25.0 Schizoaffective disorder, bipolar type (principal); F17.200 Nicotine dependence, unspecified, uncomplicated; Z79.899 Other long term (current) drug therapy
CPT/HCPCS: 36415; 80048; 80307; 80320; 81001; 84703; 85025; G0480